=== PATIENT | female | born 1980 | race African-American/Black ===

== ENCOUNTER 2022-10-03 22:26 | Emergency (ER) | payer OTHER ==
[~2022-10-03] VITALS: Ht 165.1 cm; Wt 126.3 kg
[2022-10-03] MEDS ORDERED: HYDROCODONE/ACETAMINOPHEN 5/325MG TABLET PO ONE (23:30)
[2022-10-03] MEDS ORDERED: KETOROLAC 60MG/2ML VIAL IM ONE (23:30)
[2022-10-04] MEDS ORDERED: IBUP-2030 MT
[2022-10-04 00:30] VITALS: BP 139/85
== END 2022-10-04 01:06 | disposition home or self-care (01) ==
LOC: ER 22:26
DX: M25.512 Pain in left shoulder (principal)
CPT/HCPCS: 73030; 96372; 99283; J1885; A4565